=== PATIENT | male | born 1935 | race Caucasian/White ===

== ENCOUNTER 2018-04-05 14:28 | Emergency (ER) | payer OTHER ==
[~2018-04-05] VITALS: Ht 188 cm; Wt 78.5 kg
[2018-04-05] MEDS ORDERED: TERAZOSIN HCL5 MG PO (15:10)
[2018-04-05] MEDS ORDERED: FINASTERIDE5 MG PO (15:10)
[2018-04-05] MEDS ORDERED: ASPIR 8181 MG PO (15:10)
[2018-04-05] MEDS ORDERED: LISINOPRIL10 MG PO (15:10)
[2018-04-05] MEDS ORDERED: LEVOTHYROXINE50 MCG PO (15:11)
[2018-04-05 15:43] LABS: BASOPHILS % 0.1 % (0.0-1.0); EOSINOPHILS % 0.2 % (0.0-6.0); HEMATOCRIT 45.3 % (38.2-49.6); HEMOGLOBIN 15.6 g/dL (14.0-18.0); LYMPHOCYTES # (AUTO) 1.4 (1.0-3.2); LYMPHOCYTES % 14.8 % (18.0-39.1); MEAN CORPUSCULAR HEMOGLOBIN 31.7 pg (28-32); MEAN CORPUSCULAR HGB CONC 34.4 g/dL (31-35); MEAN CORPUSCULAR VOLUME 92.1 fL (81-99); MONOCYTES # (AUTO) 0.9 (0.2-0.8); MONOCYTES % 9.6 % (4.4-11.3); NEUTROPHILS # (AUTO) 7.1 (2.1-6.9); NEUTROPHILS % 74.9 % (38.7-80.0); PLATELET COUNT 196 x10e3/uL (140-360); RED BLOOD COUNT 4.92 x10e6/uL (4.3-5.7); RED CELL DISTRIBUTION WIDTH 13.4 % (11.7-14.4)
[2018-04-05 15:46] LABS: CLARITY,URINE SL CLOUDY (CLEAR); COLOR,URINE YELLOW (YELLOW); LEUKOCYTE ESTERASE ,URINE TRACE (NEGATIVE); NITRITE,URINE NEGATIVE (NEGATIVE); PROTEIN,URINE DIPSTICK 1+ (NEGATIVE)
[2018-04-05 15:47] LABS: BILIRUBIN,URINE NEGATIVE (NEGATIVE); KETONES,URINE NEGATIVE (NEGATIVE); URINE UROBILINOGEN 1 mg/dL (0.2 - 1)
[2018-04-05 15:59] LABS: AMORPHOUS SEDIMENT,URINE FEW (FEW); BACTERIA,URINE FEW /HPF; EPITHELIAL CELLS,URINE MODERATE /LPF; MUCUS,URINE FEW (RARE)
[2018-04-05] MEDS ORDERED: MORPHINE SULFATE 2 MG/ML SYR IV STA (16:00)
[2018-04-05] MEDS ORDERED: SODIUM CHLORIDE 0.9% 1000ML 1,000 ML IV SCH (16:00)
[2018-04-05] MEDS ORDERED: ONDANSETRON HCL INJ 2 MG/ML VIAL IV STA (16:00)
[2018-04-05 16:02] LABS: INR 1.08; PROTHROMBIN TIME 13.2 seconds (11.9-14.5)
[2018-04-05 16:04] LABS: ALANINE AMINOTRANSFERASE 20 IU/L (0-55); ALBUMIN 4.1 g/dL (3.5-5.0); ALBUMIN/GLOBULIN RATIO 1.3 (0.8-2.0); ALKALINE PHOSPHATASE 58 IU/L (40-150); ANION GAP 14.9 mmol/L (8-16); BLOOD UREA NITROGEN 23 mg/dL (7-26); BUN/CREATININE RATIO 32 (6-25); CALCIUM 9.9 mg/dL (8.4-10.2); CARBON DIOXIDE 23 mmol/L (22-29); CHLORIDE 104 mmol/L (98-107); CREATINE KINASE 122 IU/L (30-200); CREATININE, SERUM 0.73 mg/dL (0.72-1.25); EST GLOMERULAR FILTRATION RATE > 60 ML/MIN (60-); GLUCOSE 153 mg/dL (74-118); POTASSIUM 3.9 mmol/L (3.5-5.1); SODIUM 138 mmol/L (136-145)
[2018-04-05] MEDS ORDERED: TRIMETHOPRIM/SULFAMETHOXAZOLE 160-800 MG TAB PO ONE (16:45)
--- NOTE | 2018-04-05 17:06 | Diagnostic Imaging Report ---
EXAMINATION: PA and lateral views of the chest. COMPARISON: None CLINICAL HISTORY: Weakness, dizziness DISCUSSION: Lines/tubes: None. Lungs: The lungs are well inflated and grossly clear. There is no evidence of pneumonia or pulmonary edema. Pleura: There is no pleural effusion or pneumothorax. Heart and mediastinum: Cardiomediastinal silhouette is unremarkable. Pulmonary vasculature is normal. Bones and soft tissues: No acute bony abnormalities. Degenerative changes in the thoracic spine IMPRESSION: No acute cardiopulmonary abnormalities. Signed by: Dr. Yang Armenta M.D. on 04/05/2018 5:03 PM
--- NOTE | 2018-04-05 18:51 | Diagnostic Imaging Report ---
EXAMINATION: Head CT HISTORY: Weakness, dizziness for the last 2 days COMPARISON: None. TECHNIQUE: Multidetector axial images were obtained without contrast from the foramen magnum to the vertex . The images were reconstructed using brain and bone algorithms. Thin section brain images were reformatted into coronal and sagittal planes. Intravenous contrast: None. Image quality: Motion/streaking artifact limits the evaluation of the skull base and posterior cranial fossa. Dose modulation, iterative reconstruction, and/or weight based adjustment of the mA/kV was utilized to reduce the radiation dose to as low as reasonably achievable. FINDINGS: Parenchyma: 1. Few scattered white matter hypodensities, most likely nonspecific chronic microvascular ischemic changes. 2. No mass or hemorrhage. No CT evidence of acute territorial vascular insult. Extra-axial spaces:No abnormal density. No extra-axial fluid collections Brain volume: Normal for age. Ventricles: No hydrocephalus or displacement. Arteries: No density suggestive of thrombus. Dural sinuses: No abnormal density. Extra-axial spaces: No abnormal density. Foramen magnum: No mass, Chiari malformation, or basilar invagination. Sella: Approximately 2.5 cm maximum height heterogeneous density sellar and suprasellar mass, which is minimally abutting the optic chiasm. Paranasal/mastoid sinuses: Imaged portions unremarkable. Skull/Scalp: No lytic or blastic lesions. No fractures. IMPRESSION: 1. No acute intracranial hemorrhage or cortical infarct. 2. Mild chronic microvascular ischemic changes. 3. 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 Signed by: Dr. Elida Driscoll M.D. on 04/05/2018 3:57 PM
== END 2018-04-05 19:52 | disposition home or self-care (01) ==
LOC: ER 14:28
DX: R42 Dizziness and giddiness (principal); R11.2 Nausea with vomiting, unspecified; R22.0 Localized swelling, mass and lump, head; Z86.73 Personal history of transient ischemic attack (TIA), and cerebral infarction without residual deficits
CPT/HCPCS: 36415; 70450; 71046; 80053; 81001; 82550; 82553; 84484; 85025; 85610; 85730; 93005; 99284; J7030